=== PATIENT | female | born 1985 | race Caucasian/White ===

== ENCOUNTER 2019-03-12 21:10 | Emergency (ER) | payer MEDICAID, OTHER ==
[~2019-03-12] VITALS: Ht 165.1 cm; Wt 90.0 kg
[~2019-03-12 21:10] MED LIST: PERM60CR19 TP
[2019-03-12 21:23] VITALS: BP 126/84
[2019-03-12] MEDS ORDERED: SULF1TAB49 PO (22:45)
[2019-03-12] MEDS ORDERED: cephalexin 250mg capsule PO ONE (22:45)
[2019-03-12] MEDS ORDERED: TETanus/Pertussis (Acell)/Diphther VAC/PF (Tdap-Adult) 0.5ml syringe IMVAC ONE (22:45)
[2019-03-12] MEDS ORDERED: sulfamethoxazole/trimethoprim DS (800/160mg) tablet PO ONE (22:45)
[2019-03-12] MEDS ORDERED: CEPH-572 PO (22:45)
== END 2019-03-12 23:27 | disposition home or self-care (01) ==
LOC: ER 21:11
DX: T24.132A Burn of first degree of left lower leg, initial encounter (principal); J45.909 Unspecified asthma, uncomplicated; Z90.49 Acquired absence of other specified parts of digestive tract; Z56.0 Unemployment, unspecified; Z88.5 Allergy status to narcotic agent; X10.2XXA Contact with fats and cooking oils, initial encounter; Y93.89 Activity, other specified; Y92.89 Other specified places as the place of occurrence of the external cause; Y99.9 Unspecified external cause status
CPT/HCPCS: 90471; 99283

== ENCOUNTER 2020-06-23 18:04 | Emergency (ER) | payer MEDICAID ==
[~2020-06-23] VITALS: Ht 165.1 cm; Wt 90.9 kg
[2020-06-23] MEDS ORDERED: morphine 4 MG/ML inj SYRINge IV PRN (18:20)
[2020-06-23] MEDS ORDERED: ondansetron/PF 4mg/2ml inj IV ONE ×2 (18:20)
[2020-06-23] MEDS ORDERED: ketorolac trometh. 30mg/ml inj. IV ONE (18:20)
[2020-06-23] MEDS ORDERED: normal saline 1000ML IV soln IVB ONE (18:20)
[2020-06-23] MEDS ORDERED: ketorolac tromethamine 15mg/ml inj. IV ONE (18:25)
[2020-06-23 18:56] LABS: BASOPHILS # (AUTO) 0.1 X10'3 (0-0.2); BASOPHILS % (AUTO) 1.2 % (0-1); EOSINOPHILS # (AUTO) 0.2 X10'3 (0-0.9); EOSINOPHILS % (AUTO) 1.6 % (0-6); HEMATOCRIT 38.5 % (35.0-45.0); HEMOGLOBIN 13.2 g/dl (12.0-16.0); LYMPHOCYTES # (AUTO) 1.3 X10'3 (1.1-4.8); LYMPHOCYTES % (AUTO) 13.5 % (21-51); MEAN CORPUSCULAR HEMOGLOBIN 28.6 PG (27.0-31.0); MEAN CORPUSCULAR HGB CONC 34.4 g/dL (33.0-36.5); MEAN CORPUSCULAR VOLUME 83.1 FL (78-98); MEAN PLATELET VOLUME 7.5 FL (7.4-10.4); MONOCYTES # (AUTO) 0.7 X10'3 (0-0.9); MONOCYTES % (AUTO) 7.3 % (2-12); NEUTROPHILS # (AUTO) 7.5 X10'3 (1.8-7.7); NEUTROPHILS % (AUTO) 76.4 % (42-75); PLATELET COUNT 260 X10'3 (140-440); RED BLOOD COUNT 4.63 X10'6 (4.20-5.60); RED CELL DISTRIBUTION WIDTH 13.9 % (11.5-14.5); WHITE BLOOD COUNT 9.8 X10'3 (4.5-11.0)
[2020-06-23 19:09] LABS: ALANINE AMINOTRANSFERASE 866 U/L (12-78); ALBUMIN 3.3 G/DL (3.4-5.0); ALBUMIN/GLOBULIN RATIO 0.7 (1.1-1.5); ALKALINE PHOSPHATASE 194 IU/L (46-116); ANION GAP 8 (8-16); ASPARTATE AMINO TRANSFERASE 454 U/L (10-37); BILIRUBIN,TOTAL 0.7 MG/DL (0.1-1.0); BLOOD UREA NITROGEN 12 MG/DL (7-18); BUN/CREATININE RATIO 14.5 (6.6-38.0); CALCIUM 9.2 MG/DL (8.5-10.1); CHLORIDE 103 MMOL/L (99-107); CREATININE 0.83 MG/DL (0.40-0.90); GLUCOSE 112 MG/DL (70-104); POTASSIUM 3.3 MMOL/L (3.5-5.1); SODIUM 136 MMOL/L (135-145); TOTAL CARBON DIOXIDE 24.7 MMOL/L (24-32); TOTAL PROTEIN 7.8 G/DL (6.4-8.2); eGFR 78 ML/MIN
[2020-06-23 19:32] LABS: LIPASE 80 U/L (73-393)
[2020-06-23 19:34] LABS: BETA HCG,QUANTITATIVE 113135 mIU/ml
--- NOTE | 2020-06-23 19:38 | NUR ---
ROUNDING ON PT, PT APPEARS TO BE RESTING COMFORTABLY. VS WNL. WILL CONTINUE TO MONITOR AND ASSESS FOR PAIN
[2020-06-23 20:17] LABS: CLARITY,URINE CLEAR (Clear); COLOR,URINE YELLOW (Yellow); GLUCOSE, URINE NEGATIVE (Neg); KETONES,URINE 40 mg/dl (Neg); LEUKOCYTE ESTERASE ,URINE TRACE (Neg); NITRITES, URINE NEGATIVE (Neg); OCCULT BLOOD,URINE SMALL (Neg); PH,URINE 7.5 (4.8-8.0); PROTEIN,URINE NEGATIVE (Neg); UROBILINOGEN,URINE 0.2 E.U/dL (0.2-1.0)
[2020-06-23 20:22] LABS: UA COLLECTION TYPE CLN CATCH MIDSTREAM
[2020-06-23 20:23] LABS: BACTERIA,URINE 2+ /HPF (Neg); RBC,URINE 0-2 /HPF (0-2); SQUAMOUS EPITHELIAL CELL,UR MODERATE /LPF (FEW); WBC,URINE 0-4 /HPF (0-4)
[2020-06-23 20:48] VITALS: BP 120/85
== END 2020-06-23 20:50 | disposition home or self-care (01) ==
LOC: ER 18:04
DX: O26.891 Other specified pregnancy related conditions, first trimester (principal); R10.31 Right lower quadrant pain; R74.01 Elevation of levels of liver transaminase levels; O99.511 Diseases of the respiratory system complicating pregnancy, first trimester; J45.909 Unspecified asthma, uncomplicated; Z3A.01 Less than 8 weeks gestation of pregnancy; Z88.8 Allergy status to other drugs, medicaments and biological substances; Z79.899 Other long term (current) drug therapy; Z56.0 Unemployment, unspecified; Z37.9 Outcome of delivery, unspecified
CPT/HCPCS: 36415; 76801; 76802; 80053; 81001; 83690; 84702; 85025; 87088; 93976; 96361; 96374; 96375; 99284; J1885; J2270; J2405; J7030; 99285

== ENCOUNTER 2023-10-24 14:56 | Emergency (ER) | payer MEDICAID ==
[~2023-10-24] VITALS: Ht 165.1 cm; Wt 91.3 kg
[2023-10-24 18:05] LABS: URINE HCG NEGATIVE (NEG)
[2023-10-24 18:28] VITALS: BP 153/103; PULSE 91; RESP 15; TEMP 97.9; O2SAT 100
== END 2023-10-24 19:40 | disposition home or self-care (01) ==
LOC: ER 14:56
DX: K59.00 Constipation, unspecified (principal); J45.909 Unspecified asthma, uncomplicated; Z88.5 Allergy status to narcotic agent; Z79.899 Other long term (current) drug therapy; Z90.49 Acquired absence of other specified parts of digestive tract
CPT/HCPCS: 74018; 81025; 99284

== ENCOUNTER 2025-07-25 22:26 | Emergency (ER) | payer MEDICAID, OTHER ==
[~2025-07-25] VITALS: Ht 165.1 cm; Wt 94.0 kg
[~2025-07-25 22:26] MED LIST changes: -PERM60CR19 TP; +PERM60CR27 TP
[2025-07-25 22:58] VITALS: TEMP 96.3
[2025-07-25 23:27] LABS: MEAN PLATELET VOLUME 7.1 FL (7.4-10.4); RED CELL DISTRIBUTION WIDTH 13.6 % (11.5-14.5)
[2025-07-25 23:52] LABS: URINE HCG NEGATIVE (NEG)
--- NOTE | 2025-07-25 23:54 | Physician Documentation ---
History of Present Illness ~ Chief Complaint: Back Pain Stated Complaint: FLANK PAIN Time Seen by MD: 23:51 Primary Medical Doctor: NONE Mode of Arrival: POV HPI Patient presents to the emergency room with bilateral lower back pain onset two days. Patient also having dysuria that has concerned she may have pyelonephritis. No fevers. She has had nothing for the pain. Patient is currently menstruating. Recent Medication Reconciliation Allergies: Coded Allergies: codeine (Unverified Allergy, Intermediate, 07/25/25) Scheduled Permethrin 5% Cream* (Elimite 5% Cream*), 1 APPLIC TP ONCE Past Medical History Past Medical History: Asthma Past Surgical History: no surgical history, cholecystectomy Alcohol Use: None Drug Use: none Lives with: Spouse, Family Lives In: Home Occupation: unemployed Review of Systems ROS All review of systems negative except as per HPI Physical Exam Physical Exam Vital Signs: Temperature: 96.3, Source: Temporal, Heart Rate: 114, Respiratory Rate: 16, BP: 140/91, Pulse Oximetry: 98, Weight: 94.000 Physical Exam General: Patient is awake, alert, oriented x4 in no acute distress and well appearing.~ Head: Normocephalic and atraumatic. Eyes: Conjunctival normal. EOMI. PERRL. ENT: Mucous membranes moist. Neck: Supple, trachea is midline. Chest: Clear to auscultation bilaterally without rales, rhonchi, or wheezes. There is no accessory muscle use or retractions. Cardiac: RRR without murmurs, gallops, or rubs. Abd: Soft, nondistended, nontender, with normoactive bowel sounds. No guarding, rebound, or rigidity. Back: No CVA tenderness mild diffuse lower back tenderness to palpation Progress Results/Orders Results/Orders Orders - MARBIN FAN MD Drug Screen, Urine (07/25/25 23:53) Completed Orders - MARBIN FAN MD Hcg, Ur Ql (07/25/25 23:01) Cbc/Diff (07/25/25 23:01) BMP (07/25/25 23:01) Lipase (07/25/25 23:01) CMP (07/25/25 23:01) Ibuprofen Tablet (Motrin Tablet) (07/26/25 00:00) Acetaminophen 325mg Tablet (Tylenol Tabl (07/26/25 00:00) Ua W/Microscopic, Cult If Ind (07/25/25 23:04) Medications Received in ER Medications (Trade) Dose Ordered Sig/Joey Route PRN Reason Start Time Stop Time Status Last Admin Dose Admin (Motrin tablet) 800 mg ONCE ONCE PO 07/26/25 00:00 07/26/25 00:01 DC 07/26/25 00:14 800 MG (Tylenol tablet) 975 mg ONCE ONCE PO 07/26/25 00:00 07/26/25 00:01 DC 07/26/25 00:14 975 MG Vital Signs 07/25/25 07/25/25 22:58 23:43 Temp 96.3 Pulse 114 Resp 15 16 B/P (MAP) 140/91 Pulse Ox 98 Laboratory Tests Test 07/25/25 23:04 07/25/25 23:12 Urine Specimen Description Cln catch midstream Urine Color Yellow Urine Clarity Clear Urine pH 6.0 Urine Specific [place] >=1.030 Urine Protein 30 H Urine Glucose (UA) Negative Urine Ketones 40 H Urine Occult Blood Trace-intact Urine Nitrite Negative Urine Bilirubin Moderate Urine Urobilinogen 1.0 Urine Leukocyte Esterase Negative Urine RBC 3-10 Urine WBC 0-4 Urine Squamous Epithelial Cells Moderate Urine Amorphous Urates 1+ Urine Bacteria None seen Urine Mucus Few Urine Culture Indicated Not ind Volume Urine Centrifuged 10 ml Urine HCG, Qualitative Negative Urine Comment White Blood Count 11.6 H Red Blood Count 5.15 Hemoglobin 14.1 Hematocrit 41.2 Mean Corpuscular Volume 80.0 Mean Corpuscular Hemoglobin 27.4 Mean Corpuscular Hemoglobin Concent 34.3 Red Cell Distribution Width 13.6 Platelet Count 308 Mean Platelet Volume 7.1 L Neutrophils (%) (Auto) 66.2 Lymphocytes (%) (Auto) 22.8 Monocytes (%) (Auto) 8.0 Eosinophils (%) (Auto) 1.7 Basophils (%) (Auto) 1.3 H Neutrophils # (Auto) 7.7 Lymphocytes # (Auto) 2.7 Monocytes # (Auto) 0.9 Eosinophils # (Auto) 0.2 Basophils # (Auto) 0.2 CBC Comment Sodium Level 141 Potassium Level 3.4 L Chloride Level 105 Carbon Dioxide Level 21.5 L Anion Gap 15 Blood Urea Nitrogen 33 H Creatinine 1.06 H Estimated GFR/1.73 m2 57 BUN/Creatinine Ratio 31.1 H Glucose Level 102 Calcium Level 9.4 Total Bilirubin 1.2 H Aspartate Amino Transf (AST/SGOT) 55 H Alanine Aminotransferase (ALT/SGPT) 58 Alkaline Phosphatase 116 Total Protein 8.8 H Albumin 4.3 Globulin 4.5 H Albumin/Globulin Ratio 1.0 L Lipase 61 Chemistry Comments Medical Decision Making Additional information obtaine: N/A Findings Patient presents to the emergency room for evaluation of back pain. Differentials include but are not limited to lumbago, kidney stone, pyelonephritis, aortic pathology therefore emergent labs ordered. Labs reas suring. Urine clear. Given patient's bilateral back symptoms I do not feel she requires investigation into kidney stone. Pain improved. I suspect because she has had recent she is doing unusual activities like bending over that has changed diapers in holding baby and this is contributing to patient's lower back pain. Ibuprofen and Tylenol discussed. I do not feel she is suffering from intra-abdominal infection causing referred back pain although she does have slight elevation of her white blood cell count. Differential Dx:Considerations: Cholelithiasis Departure Disposition: HOME / SELF CARE / HOMELESS Impression: Primary Impression: Lumbago Condition: Stable Discharge Instructions: Lumbosacral Strain Additional Instructions: You do appear dehydrated on your labs. Make sure you drink plenty of water Referrals: NO PRIMARY CARE PROVIDER (PCP) Signature Scribe Signature: No scribe Attestation: The note accurately reflects work and decisions made by me.Marbin Fan MD 07/26/25 00:36 MARBIN FAN MD Jul 25, 2025 23:54
[2025-07-25 23:55] LABS: LEUKOCYTE ESTERASE ,URINE NEGATIVE (Neg); NITRITES, URINE NEGATIVE (Neg); OCCULT BLOOD,URINE TRACE-INTACT (Neg)
[2025-07-26] LABS: UA COLLECTION TYPE CLN CATCH MIDSTREAM
[2025-07-26 00:04] LABS: AMORPHOUS URATES 1+; MUCUS STRANDS FEW /LPF (Neg); SQUAMOUS EPITHELIAL CELL,UR MODERATE /LPF (FEW)
[2025-07-26 00:08] LABS: CREATININE 1.06 MG/DL (0.40-0.90); TOTAL CARBON DIOXIDE 21.5 MMOL/L (24-32); eCRCL 63 ML/MIN; eGFR 57 ML/MIN
[2025-07-26] MEDS: ibuprofen tablet 400 MG TABLET PO ONE (00:14)
[2025-07-26 00:46] VITALS: BP 122/78; PULSE 78; RESP 16; O2SAT 98
[2025-07-26 01:34] LABS: URINE AMPHETAMINE SCREEN POSITIVE (Neg); URINE BARBITUATE SCREEN NEGATIVE (Neg); URINE BENZODIAZEPINES SCREEN NEGATIVE (Neg); URINE CANNABINOID SCREEN NEGATIVE (Neg); URINE COCAINE SCREEN NEGATIVE (Neg); URINE METHADONE SCREEN NEGATIVE (Neg); URINE OPIATE SCREEN NEGATIVE (Neg); URINE PHENCYCLIDINE SCREEN NEGATIVE (Neg)
== END 2025-07-26 00:49 | disposition home or self-care (01) ==
LOC: ER 22:26
DX: M54.50 Low back pain, unspecified (principal); Z88.5 Allergy status to narcotic agent; Z79.899 Other long term (current) drug therapy; Z56.0 Unemployment, unspecified
CPT/HCPCS: 36415; 80053; 80305; 81001; 81003; 81025; 83690; 85025; 99283